=== PATIENT | male | born 1970 | race Caucasian/White ===

== ENCOUNTER 2017-10-27 09:13 | Outpatient (CLI) | payer BC ==
[2017-10-27 10:17] LABS: #Basophils 0.1 thou/uL (0.0-0.2); #Eosinphils 0.3 thou/uL (0.0-0.7); #Lymphocytes 2.1 thou/uL (1.20-3.40); #Monocytes 0.5 thou/uL (0.11-0.59); #Neutrophils 3.6 thou/uL (1.40-6.50); %Eosinophils 4.7 % (0.0-10.0); %Lymphocytes 31.7 % (21.0-51.0); %Monocytes 7.7 % (0.0-10.0); %Neutrophils 54.9 % (42.0-75.0); Hemoglobin 16.6 g/dL (14.0-18.0); Mean Corpuscular HGB CONC 33.3 g/dL (32.0-36.0); Mean Corpuscular Volume 93.3 fl (80.0-94.0); Mean Platelet Volume 6.2 fL (7.4-10.4); Platelet Count 221 thou/uL (130-400); RBC Distribution Width 11.5 % (11.5-14.5); Red Blood Cell (RBC) Count 5.34 mill/uL (4.70-6.10); White Blood Cell (WBC) Count 6.6 thou/uL (4.8-10.8)
[2017-10-27 10:39] LABS: Anion Gap 13 mmol/L (10-20); BUN (Urea Nitrogen) 16 mg/dL (8.9-20.6); Calc. Creatinine Clearance 0 mL/min (70-130); Calcium 9.2 mg/dL (7.8-10.44); Carbon Dioxide 23 mmol/L (22-29); Chloride 108 mmol/L (98-107); Estimated GFR-MDRD Greater than 90; Glucose 98 mg/dL (70-105); Potassium 4.5 mmol/L (3.5-5.1); Sodium 139 mmol/L (136-145)
== END 2017-10-27 09:14 | disposition home or self-care (01) ==
LOC: LABBT 09:13
PROVIDERS: ATTEND Specialist
DX: Z01.812 Encounter for preprocedural laboratory examination (principal); K40.20 Bilateral inguinal hernia, without obstruction or gangrene, not specified as recurrent
CPT/HCPCS: 80048; 85025

== ENCOUNTER 2017-11-02 05:54 | Day surgery (SDC) | payer BC ==
[2017-10-27 09:33] VITALS: BMI 28.7
[2017-11-02] MEDS ORDERED: Lidocaine 2% Jelly 5 ML TUBE ONE (05:59)
[2017-11-02] MEDS ORDERED: Fentanyl 250 MCG/5 ML VIAL ONE (05:59)
[2017-11-02] MEDS ORDERED: Midazolam HCl 2 mg/2 ml Vial ONE (05:59)
[2017-11-02] MEDS ORDERED: CEFAZOLIN/Water 2 GM/20 ML SYRINGE ONE (06:21)
[2017-11-02] MEDS ORDERED: Ketorolac Tromethamine 30 MG/ML VIAL ONE (06:21)
[2017-11-02] MEDS ORDERED: Bupivacaine/Epinephrine 0.25% 30 ML VIAL ONE (06:56)
[2017-11-02] MEDS ORDERED: Fentanyl 100 MCG/2 ML VIAL ONE (09:19)
[2017-11-02] MEDS ORDERED: Lidocaine 1% PF 5 ML VIAL ONE (10:45)
[2017-11-02] MEDS ORDERED: Ondansetron HCl/PF 4 MG/2 ML Vial ONE (10:45)
[2017-11-02] MEDS ORDERED: Dexamethasone 20 MG/5 ML VIAL ONE (10:45)
[2017-11-02] MEDS ORDERED: PROPOFOL 200 MG/20 ML VIAL ONE (10:45)
[2017-11-02] MEDS ORDERED: Glycopyrrolate 0.2 MG/ML 5 ML SYRINGE ONE (10:45)
--- NOTE | 2017-11-03 15:51 | OP ---
DATE OF PROCEDURE: 11/02/2017 PREOPERATIVE DIAGNOSIS: Bilateral inguinal hernia. POSTOPERATIVE DIAGNOSES: Bilateral inguinal hernia with finding of bilateral direct inguinal hernias and a right indirect inguinal hernia. OPERATION PERFORMED: Bilateral robotic inguinal hernia repair. SURGEON: LATESHA SAAVEDRA M.D. ANESTHESIA: General endotracheal. INDICATIONS: The patient is a 47-year-old, white male. He presents with evidence of bilateral ingui nal hernias taken to the operating room at this time for surgical repair. DESCRIPTION OF OPERATION: Informed consent was obtained. The patient was taken to the operating candace m where general endotracheal anesthesia was obtained with the patient in supine position. Clemons cath eter was placed. Abdomen was prepped with ChloraPrep and draped in sterile fashion. Local anestheti c was infiltrated, and an 11 mm supraumbilical incision was created through which a Veress needle was passed into the peritoneal cavity. Pneumoperitoneum established using carbon dioxide up to a pressu re of 15 mmHg. An 11 mm trocar was passed through the same incision. Laparoscopic camera was passed through this port. Under direct vision, two additional 8 mm ports were placed at the supraumbilical level on either side of midline. The robot was docked to the 3 ports into the robotic camera and op eration was continued from the robotic console. Initial examination of the abdomen revealed bilateral direct inguinal hernias. Additionally, there a ppeared to be an indirect component on the right. A mirror image dissection was performed bilaterally. A transverse peritoneal incision was created se veral centimeters above the hernia. Preperitoneal dissection was carried inferiorly. The pubic tube rcle and Colton's ligament were dissected along the medial aspect. The hernia sac was dissected out of the direct hernia bilaterally, and the defect was dissected. The peritoneum was dissected off the underlying cord structures, and a space for the mesh was dissected laterally. Meticulous hemostasis was maintained. On each side, a large 3DMax mesh patch was obtained and placed in the preperitoneal space. Great car e was taken to ensure adequate coverage over the hernia defect. Due to the medial location of the he rnia defect, the mesh had excellent overlap on the pubic tubercle. Three sutures were placed to secu re the mesh on each side, one to the pubic tubercle, one to the anterior abdominal wall medial to the epigastric vessels and one to the far lateral aspect of the mesh tail. After the mesh was satisfact orily oriented, the peritoneum was closed with a running suture of 3-0 Stratafix. The fascial defect at the supraumbilical port was closed with 0 Vicryl suture using a GraNee needle. All ports and ins truments removed under direct vision. Pneumoperitoneum was carefully evacuated. A 0.25% Marcaine wi th epinephrine was infiltrated at each port site. Skin edges approximated with 4-0 Monocryl subcutic ular suture. Dermabond was placed externally. There were no complications. The patient tolerated t he procedure well and was taken to recovery room in stable condition.
== END 2017-11-02 12:10 | disposition home or self-care (01) ==
LOC: SDC 05:54
PROVIDERS: ATTEND Specialist
PROC: 8E0W4CZ Robotic Assisted Procedure of Trunk Region, Percutaneous Endoscopic Approach (ICD-10-PCS; principal; 2017-11-02)
PROC: 0YUA4JZ Supplement Bilateral Inguinal Region with Synthetic Substitute, Percutaneous Endoscopic Approach (ICD-10-PCS; principal; 2017-11-02)
DX: K40.20 Bilateral inguinal hernia, without obstruction or gangrene, not specified as recurrent (principal); Z79.899 Other long term (current) drug therapy
CPT/HCPCS: C1781; J0131; J1100; J1885; J2001; J2250; J2405; J2704; J3010